=== PATIENT | male | born 1960 ===

== ENCOUNTER 2024-09-19 13:51 | Emergency (ER) | payer OTHER ==
[~2024-09-19] VITALS: Ht 175.3 cm; Wt 101.4 kg
[2024-09-19 14:04] VITALS: TEMP 98.5
[2024-09-19] MEDS ORDERED: SENN-376 PO (14:23)
[2024-09-19] MEDS ORDERED: FAMO10TA39 PO (14:23)
[2024-09-19] MEDS ORDERED: RISP0.5T39 PO (14:23)
[2024-09-19] MEDS ORDERED: NALT50TA33 PO (14:23)
[2024-09-19] MEDS ORDERED: LEVO-108 PO (14:23)
[2024-09-19] MEDS ORDERED: LISI-661 PO (14:23)
[2024-09-19] MEDS ORDERED: TRAZ-186 PO (14:27)
[2024-09-19] MEDS ORDERED: TAMS-1 PO (14:27)
[2024-09-19] MEDS ORDERED: SERT20OR6 PO (14:27)
[2024-09-19 14:42] LABS: COVID AG,FIA SOURCE NASAL SWAB
[2024-09-19 14:50] LABS: APPEARANCE,URINE CLEAR (CLEAR); BILIRUBIN,URINE NEGATIVE (NEGATIVE); COLOR,URINE LIGHT YELLOW (YELLOW); GLUCOSE, URINE (UA) TRACE mg/dL (NEGATIVE); KETONES,URINE NEGATIVE (NEGATIVE); LEUKOCYTE ESTERASE ,URINE NEGATIVE (NEGATIVE); NITRATE,URINE NEGATIVE (NEGATIVE); OCCULT BLOOD,URINE NEGATIVE (NEGATIVE); PROTEIN,URINE NEGATIVE (NEGATIVE); SPECIFIC GRAVITIY, URINE 1.013 (1.003-1.030); UROBILINOGEN,URINE <=1.0 mg/dL (<=1.0)
[2024-09-19 14:56] LABS: BACTERIA,URINE None Seen /HPF (None Seen); RBC,URINE None Seen /HPF (0-2); WBC,URINE None Seen /HPF (0-5)
[2024-09-19] MEDS: GuaiFENesin/D-METHORPHAN/PHENYLEPH 5 ML LIQUID ORAL.SYG PO ONE (15:06)
[2024-09-19 15:14] LABS: SARS-COV2 (COVID) ANTIGEN,FIA Negative (Negative)
[2024-09-19 15:15] LABS: INFLUENZA TYPE A NEGATIVE FOR TYPE A (NEGATIVE); INFLUENZA TYPE B NEGATIVE FOR TYPE B (NEGATIVE)
[2024-09-19 15:32] LABS: EOSINOPHILS % (AUTO) 1.1 % (1.0-6.0); HEMATOCRIT 45.4 % (41-53); HEMOGLOBIN 15.4 g/dL (13.5-17.5); LYMPHOCYTES # (AUTO) 1.6 K/uL (1.0-4.8); MEAN CORPUSCULAR HEMOGLOBIN 30.8 pg (26.0-34.0); MEAN CORPUSCULAR HGB CONC 33.9 G/dL (31.0-37.0); MEAN CORPUSCULAR VOLUME 91 fL (80-100); MONOCYTES # (AUTO) 0.7 K/uL (0.1-1.0); MONOCYTES % (AUTO) 7.1 % (2.0-9.0); NEUTROPHILS # (AUTO) 6.9 K/uL (1.8-7.7); NEUTROPHILS % (AUTO) 73.8 % (40.0-70.0); PLATELET COUNT (AUTO) 215 K/uL (150-450); RED BLOOD CELL COUNT(AUTO) 4.99 MIL/uL (4.50-5.90); WHITE BLOOD COUNT (AUTO) 9.4 K/uL (4.5-11.0)
[2024-09-19 15:42] LABS: CALCIUM, TOTAL 9.3 mg/dL (8.8-10.5); CREATININE 1.31 mg/dL (0.60-1.30); POTASSIUM 4.4 mmol/L (3.5-5.1)
[2024-09-19 15:51] LABS: TROPONIN I-HIGH SENSITIVITY 5 ng/L (<76)
[2024-09-19] MEDS ORDERED: BENZ-227 PO (16:55)
[2024-09-19 17:25] VITALS: BP 104/74; PULSE 100; RESP 14; O2SAT 96
== END 2024-09-19 18:00 | disposition home or self-care (01) ==
LOC: EMS 13:51
DX: R05.9 Cough, unspecified (principal); F32.A Depression, unspecified; I10 Essential (primary) hypertension; N40.0 Benign prostatic hyperplasia without lower urinary tract symptoms; E03.9 Hypothyroidism, unspecified; F43.10 Post-traumatic stress disorder, unspecified; Z79.899 Other long term (current) drug therapy; Z87.891 Personal history of nicotine dependence; Z20.822 Contact with and (suspected) exposure to COVID-19
CPT/HCPCS: 71045; 80048; 81001; 83880; 84484; 85025; 87804; 99284; 36415-L1; 36415-TC